=== PATIENT | male | born 1975 | race Caucasian/White ===

== ENCOUNTER 2016-08-12 08:35 | Day surgery (SDC) | payer BC ==
[~2016-08-12 08:35] MED LIST: DOCU-109 PO; HYDROmorphone 2 MG/ML VIAL IV PRN; IV RINGERS,LACTATED 1000ML 1,000 ML IV SCH; LIDOCAINE 1% 1 ML SYRINGE. ID PRN; MORPHINE SULFATE 2 MG/ML DISP.SYRIN. IV PRN; ONDA4TAB10 PO; ONDANSETRON PF 4 MG/2 ML VIAL. IV PRN; OXYC-323 PO; PROCHLORPERAZINE 10 MG/2 ML VIAL. IV PRN; fentaNYL PF VIAL 100 MCG/2 ML VIAL IV PRN
--- NOTE | 2016-08-12 09:12 | ACF ---
Admission Forms Criteria MUSCULOSKELETAL DISEASE GRG Clinical Indications for Admission to Inpatient Care (Place 'X' for any and all applicable criteria): Hospital admission is needed for appropriate care of the patient because of 1 or more of the following: [ ]I. Fracture, dislocation, or other musculoskeletal injury requiring inpatient care(medical) as indicated by 1 or more of the following(4)(5)(6)(7) [ ]a) Vertebral fracture requiring observation for instability or neurologic compromise (8) [ ]b) Compartment syndrome (proven or cannot be ruled out during observation level of care) (9) [ ]c) Limb-threatening injury [ ]d) Major injury requiring inpatient stabilization such as traction initiation or external fixation before internal fixation or closure of complex or open fracture [ ]e) Major injury requiring inpatient treatment after emergency or observation level care (as appropriate) [ ]f) Severe pain requiring acute inpatient management [ ]g) Injury with suspicion of abuse or neglect (eg., child, dependent elderly) [ ]II. Newly diagnosed or suspected bone, joint, or orthopedic device infection (e.g., osteomyelitis, septic arthritis) needing 1 or more of the following(1)(2)(3) [ ]a) IV antibiotics that cannot be initiated in other than inpatient setting (e.g., patient too unstable or home infusion not available) [ ]b) Device removal or replacement [ ]c) Bone or soft tissue debridement [ ]d) Joint drainage (drain placement or repetitive aspirations) [ ]III. Severe rheumatologic disease (e.g., systemic lupus erythematosus, rheumatoid arthritis) with complications or comorbidities (Also use Optimal Recovery Care Criteria or General Recovery Criteria as appropriate on the basis of predominant condition), including 1 or more of the following( 10)(11)(12)(13) [ ]a) Severe infection (e.g., PROCESS ANALYST infection, sepsis) (14) [ ]b) Respiratory complications, including 1 or more of the following : [ ]i) Pleural effusion with respiratory compromise [ ]ii) Pulmonary hypertension with congestive failure [ ]iii) Respiratory failure [ ]iv) Pulmonary hemorrhage (15) [ ]c) Hematologic disease, including 1 or more of the following: [ ]i) Coagulopathy with bleeding [ ]ii) Thrombosis with hypercoagulable state [ ]iii) Thrombotic thrombocytopenic purpura [ ]d) Cerebritis with seizures, psychosis, or other severe abnormalities [ ]e) Vertebral destruction with monitoring needed for cervical myelopathy& possible respiratory compromise [ ]f) Exacerbation that requires inpatient treatment (e.g., intravenous immunosuppression) (16) [ ]g) Acute renal failure [ ]h) Cerebritis with seizures, psychosis, Altered mental status, or other neurologic abnormalities [ ]i) Pericardial effusion with tamponade [ ]j) Vertebral destruction, with monitoring needed for cervical myelopathy and possible respiratory compromise [ ]IV. Severe vasculitis with complications or comorbidities (Also use Optimal Recovery Care Criteria General Recovery Criteria as appropriate on the basis of predominant condition), including 1 or more of the following(11)(12)(17)(18)(19)(20) [ ]a) Exacerbation that requires inpatient treatment (e.g., intravenous immunosuppression) (19)(21) [ ]b) Pulmonary hemorrhage (15) [ ]c) PROCESS ANALYST vasculitis with seizures, psychosis, Altered mental status that is severe or persistent, or other severe abnormalities (22) [ ]d) Cerebral infarction [ ]e) Gastrointestinal ischemia [ ]f) Gangrene or threatened amputation [ ]g) Renal failure (16) [ ]h) Other significant complications of vasculitis ( eg., tissue or organ ischemia, organ dysfunction ) [ ]V. Severe myopathy as indicated by 1 or more of the following (28)(29) [ ]a) New onset of airway compromise or inability to swallow [ ]b) Respiratory deterioration with observation needed for impending respiratory failure [ ]c) Exacerbation that requires inpatient treatment (e.g., intravenous immunosuppression) [ ]. Severe crystal gout (arthropathy) indicated by 1 or more of the following (23)(24) [ ]a) Severe pain requiring acute inpatient management [ ]b) Exacerbation that requires inpatient treatment (e.g., intravenous treatment) [ ]VII.Rhabdomyolysis and 1 or more of the following (25)(26)(27) [ ]a) Acute renal failure [ ]b) Need for intravenous hydration after emergency or observation level care (as appropriate) [ ]c) Inability to maintain oral hydration [ ]d) Change in mental status [ ]e) Electrolyte abnormality that remains after emergency or observation level care (as appropriate) [ ]VIII Post amputation complication, as indicated by ANY ONE of the following [ ]a) Infection [ ]b) Dehiscence [ ]c) Myodesis failure [X]IX. Severe pain requiring acute inpatient management due to musculoskeletal condition [ ]X. Musculoskeletal Disease and ALL of the following: [ ]a) Symptom or finding for which emergency and observation care have failed or are not considered appropriate (Use General Criteria: Observation Care as appropriate) [ ]b) Presence of ANY ONE of the following [ ]i) A General Admission Criteria [ ]ii) A Pediatric General Admission Criteria The original [facility] content created by [employer] has been revised. The portions of the content which have been revised are identified through the use of italic text or in bold, and [facility] has neither reviewed nor approved the modified material. All other unmodified content is copyright [facility]. Please see references footnoted in the original [facility] edition 2016 SHELLEY PRIETO Aug 12, 2016 09:12
[2016-08-12] MEDS ORDERED: ATOR10TA60 PO (09:26)
[2016-08-12] MEDS ORDERED: LIDOCAINE 2% PF Vial for OR 5 ML VIAL. ONE (09:31)
[2016-08-12] MEDS ORDERED: PROPOFOL 0 ML IV ONE (09:31)
[2016-08-12] MEDS ORDERED: ONDANSETRON PF 4 MG/2 ML VIAL. ONE (09:31)
[2016-08-12] MEDS ORDERED: fentaNYL PF VIAL 100 MCG/2 ML VIAL ONE (09:32)
--- NOTE | 2016-08-12 10:18 | DISCH ---
DISCHARGE INSTRUCTIONS Condition on Discharge Condition on Discharge: Stable Activity After Discharge Activity Instructions for Disc: No restrictions Bathing Instructions: Shower-keep dressing dry Weight Bearing Status after Di: As tolerated Diet after Discharge Diet after Discharge: Regular Wound Incision Care Wound/Incision Care: Ice to area for comfort, Keep wound elevated, Change dressing Contacting the DRBeatrice after DC Call your doctor for: Concerns you may have Follow-Up Follow up with: Anish in 2wks DANIEL PHIPPS II, MD Aug 12, 2016 10:18
--- NOTE | 2016-08-12 10:19 | PDOC ---
BRIEF OPERATIVE NOTE Date: Aug 12, 2016 Pre-Op Diagnosis Painful hardware LLE Post-Op Diagnosis same Procedure Performed [facility] LLE Surgeon Anish Anesthesia Type: General, Local Blood Loss 10mL Complications none DANIEL PHIPPS II, MD Aug 12, 2016 10:19
[2016-08-12] MEDS ORDERED: ePHEDrine PF IN SALINE 50 MG/5 ML DISP.SYRIN IV ONE (10:21)
[2016-08-12] MEDS ORDERED: LIDOCAINE 1% 20 ML VIAL. ONE (10:37)
[2016-08-12] MEDS ORDERED: BUPIVACAINE 0.5% 50 ML VIAL. ONE (10:37)
[2016-08-12] MEDS ORDERED: SEVOFLURANE 31 TO 60 MINUTES. IH ONE (10:41)
[2016-08-12] MEDS ORDERED: PROPOFOL 20 ML IV ONE (10:54)
--- NOTE | 2016-08-12 11:11 | PDOC4 ---
Operative Note Operative Note Date of surgery August 04, 2016 Surgeon Liu Phipps Certified Technician none Anesthesiologist Tish Preoperative diagnosis: Symptomatic hardware left tibia Postoperative diagnosis: Same Estimated blood loss: 10 mL's Anesthesia Gen. plus local Complications: None Reason for procedure: Jovani is very +41-year-old gentleman who underwent closed reduction and IM nailing of his left tibia fracture and treatment of the syndesmotic injury about a year ago with myself. Seen and followed him in clinic. Radiographs demonstrated union of his fracture. He had undergone hardware removal of syndesmotic screws at the appropriate time in the past. He presented to me recently with pain over the interlocking screws. We had a discussion the risks benefits and alternatives to proceeding to the operating room for the above surgery and he elected to proceed. Description of procedure: Patient was greeted in the preoperative area where the correct extremity was marked and verified. He was taken to the operative suite and his antibiotics were started and route. Once in the OR, he was transferred gently supine to the OR table and had successful induction of general anesthesia. After this, he was secured to the bed. All pressure points were padded. We then placed a nonsterile tourniquet on his left thigh but did not use it for this case. We then proceeded to prep and drape left lower extremity in our usual sterile fashion and conducted a standard preoperative timeout. After this was accomplished, I began working at the proximal lateral interlocking screws. I used a scalpel to incise through his prior stab incisions and hemostat to bluntly dissect down to the screw heads and remove the scar tissue that had formed over top of the screw heads. I then used the screwdriver to remove the screws without complication. After this, I directed my attention to the distal medial interlocking screw and incised skin through the prior stab incision and again bluntly dissected down to the screw head with a hemostat and remove the adherent fibrotic tissue. This screw was then removed with a screwdriver without competition as well. I then took fluoroscopic images to confirm hardware removal. The stab incisions were then irrigated out with sterile saline, I then injected up proximally 10 mL in combination of a local anesthetic mixture around the incisions. I then placed a single inverted interrupted 2-0 Vicryl suture to close the deep layer and the skin was closed with simple interrupted 2-0 nylon. We then cleansed and dried the leg and placed Xeroform gauze and an an occlusive dressing. An Tai wrap was then applied to the patient's leg. No complications. Patient tolerated surgery well. At the conclusion of the surgery he was awake anesthesia transferred gently supine to the recovery room cart and taken to PACU in stable and extubated condition. LIU PHIPPS II, MD Aug 12, 2016 11:11
[2016-08-12] MEDS: fentaNYL PF VIAL 100 MCG/2 ML VIAL IV PRN ×2 (11:14→11:30)
[2016-08-12] MEDS ORDERED: OXYC-323 PO (11:27)
[2016-08-12] MEDS ORDERED: oxyCODONE/APAP 5/325 1 TAB TABLET PO PRN (11:45)
[2016-08-12 12:14] VITALS: BP 119/77
== END 2016-08-12 12:21 | disposition home or self-care (01) ==
LOC: SURG 08:35
PROVIDERS: ATTEND Orthopaedic Surgery Sports Medicine
DX: T84.84XA Pain due to internal orthopedic prosthetic devices, implants and grafts, initial encounter (principal); Y84.8 Other medical procedures as the cause of abnormal reaction of the patient, or of later complication, without mention of misadventure at the time of the procedure; E78.00 Pure hypercholesterolemia, unspecified; K21.9 Gastro-esophageal reflux disease without esophagitis; F17.200 Nicotine dependence, unspecified, uncomplicated; I20.9 Angina pectoris, unspecified; Z86.69 Personal history of other diseases of the nervous system and sense organs; Z86.14 Personal history of Methicillin resistant Staphylococcus aureus infection; Z87.39 Personal history of other diseases of the musculoskeletal system and connective tissue; Z91.040 Latex allergy status; Z91.048 Other nonmedicinal substance allergy status
CPT/HCPCS: 20680; 76000; A4215; J0690; J2405; J2704; J3010; J3490; J7120